=== PATIENT | male | born 1985 | race American Indian/Alaskan Native ===

== ENCOUNTER 2020-12-09 01:58 | Emergency (ER) | payer SELFPAY ==
[2020-12-09 02:30] VITALS: BP 104/63
--- NOTE | 2020-12-09 03:22 | XRay Report ---
Right hand 3 views INDICATION: Injury FINDINGS: MCP joints and IP joints appear normal. No focal soft tissue swelling is definitely seen. N o displaced fracture. Clinical correlation with area of pain Signer Name: Dino Abreu MD Signed: 12/09/2020 3:18 AM Workstation Name: [id number]
--- NOTE | 2020-12-09 06:33 | Emergency Department Report ---
HPI - General Chief Complaint: Extremity Injury, Upper Time Seen by Provider: 12/09/20 06:18 - HPI HPI: MSE 6 The patient is a 35-year-old male present with a chief complaint of right index finger pain. The patient states while playing basketball approximately 3 to 4 weeks ago he hyperextended his right index finger at the MCP while going for the basketball. Patient states he has severe pain whenever he bumps it against something and his pain has been persistent prompting him to come to the emergency department. Patient currently gives his pain score 5/10 ED Past Medical Hx - Past Medical History Previous Medical History?: No - Surgical History Past Surgical History?: No - Family History Family history: no significant - Social History Smoking Status: Current Some Day Smoker Substance Use Type: Alcohol - Medications Home Medications: Home Medications Medication Instructions Recorded Confirmed Last Taken Type Albuterol Sulfate [Ventolin HFA] 2 puff IH Q4H PRN #1 hfa.aer.ad 06/17/13 Unknown Rx Loratadine (Nf) [Claritin] 10 mg PO DAILY #30 tablet 06/17/13 Unknown Rx Promethazine /Codeine 5 ml PO Q6H PRN #150 udc 06/17/13 Unknown Rx [Phenergan/Codeine 6.25-10 mg/5 ml] Sulfamethoxazole/Trimethoprim 1 each PO BID #20 tablet 06/17/13 Unknown Rx [Bactrim Ds] Ibuprofen [Motrin 800 MG tab] 800 mg PO Q8HR PRN #20 tablet 12/09/20 Unknown Rx traMADoL [Ultram] 50 mg PO Q6HR PRN #14 tablet 12/09/20 Unknown Rx ED Review of Systems ROS: Stated complaint: POSS RIGHT HAND BROKEN/PAINFUL Other details as noted in HPI Musculoskeletal: arthralgia Physical Exam - Physical Exam Vital Signs: Vital Signs 12/09/20 02:27 Temperature 98.8 F Pulse Rate 53 L Respiratory 16 Rate Blood Pressure 104/63 [Right] O2 Sat by Pulse 100 Oximetry Physical Exam: GENERAL: The patient is well-developed well-nourished male sitting on stretcher not appearing to be in acute distress. [] HEENT: Normocephalic. Atraumatic. NECK: Trachea midline CHEST/LUNGS: There is no respiratory distress noted. HEART/CARDIOVASCULAR: Right index finger warm and well perfused SKIN: There is no rash. There are no lacerations to the right index finger NEURO: The patient is awake, alert, and oriented. The patient is cooperative. The patient has no focal neurologic deficits. The patient has normal speech. GCS 15 MUSCULOSKELETAL: There is no tenderness to palpation of the right index finger at the MCP, PIP or DIP ED Course Vital Signs 12/09/20 02:27 Temperature 98.8 F Pulse Rate 53 L Respiratory 16 Rate Blood Pressure 104/63 [Right] O2 Sat by Pulse 100 Oximetry ED Medical Decision Making - Radiology Data Radiology results: report reviewed (Right hand x-ray), image reviewed (Right hand x-ray) interpreted by me: Right hand x-ray-no acute fracture, no dislocation [facility] [address] [place] [address] XRay Report Signed Patient: HAIDER VELEZ MR#: [id number] : 1985 Acct:[id number] Age/Sex: 35 / M ADM Date: 12/09/20 Loc: ED Attending Dr: Ordering Physician: ED MD ROSALIE Date of Service: 12/09/20 Procedure(s): XR hand 3+V RT Accession Number(s): [id number] cc: ED MD ROSALIE Fluoro Time In Minutes: Right hand 3 views INDICATION: Injury FINDINGS: MCP joints and IP joints appear normal. No focal soft tissue swelling is definitely seen. No displaced fracture. Clinical correlation with area of pain Signer Name: Dino Abreu MD Signed: 12/09/2020 3:18 AM Workstation Name: [id number] Transcribed By: CW Dictated By: SILVIO ABREU MD Electronically Authenticated By: SILVIO ABREU MD Signed Date/Time: 12/09/20317 DD/ 6 TD/TT: Print Cancel - Differential Diagnosis Finger fracture, finger sprain Critical care attestation.: If time is entered above; I have spent that time in minutes in the direct care of this critically ill patient, excluding procedure time. ED Disposition Clinical Impression: Hyperextension injury of finger Disposition: 01 HOME / SELF CARE / HOMELESS Is pt being admited?: No Does the pt Need Aspirin: No Condition: Stable Additional Instructions: Return to the emergency department should you develop worsening symptoms, inability to tolerate food or liquids, high fever or any other concerns Prescriptions: Ibuprofen [Motrin 800 MG tab] 800 mg PO Q8HR PRN #20 tablet PRN Reason: Pain, Moderate (4-6) traMADoL [Ultram] 50 mg PO Q6HR PRN #14 tablet PRN Reason: Pain Referrals: OSCAR SEGOVIA MD [Staff Physician] - 3-5 Days (Dr. Segovia is an orthopedic surgeon. Please follow-up with him or another orthopedic surgeon for further evaluation) Time of Disposition: 06:36
== END 2020-12-09 06:51 | disposition home or self-care (01) ==
LOC: ED 01:58
DX: S63.630A Sprain of interphalangeal joint of right index finger, initial encounter (principal); F17.200 Nicotine dependence, unspecified, uncomplicated; Y93.61 Activity, american tackle football; Y92.89 Other specified places as the place of occurrence of the external cause; Y99.8 Other external cause status
CPT/HCPCS: 99283